=== PATIENT | female | born 1960 | race Two or more races ===

== ENCOUNTER → 2022-12-15 06:00 | Outpatient (CLI) | payer OTHER | END | disposition home or self-care (01) | LOC: ADM 11-23 09:00 → LAB 06:00 → ADM 09:15 → EDSTATUS 12-27 09:15 → CIR.AMB 12-27 09:15 | PROVIDERS: ATTEND Orthopaedic Surgery Hand Surgery | DX: Z01.810 Encounter for preprocedural cardiovascular examination (principal); S52.532P Colles' fracture of left radius, subsequent encounter for closed fracture with malunion; E11.9 Type 2 diabetes mellitus without complications; E78.00 Pure hypercholesterolemia, unspecified; E78.3 Hyperchylomicronemia; D65 Disseminated intravascular coagulation [defibrination syndrome]; D66 Hereditary factor VIII deficiency; N39.0 Urinary tract infection, site not specified; I10 Essential (primary) hypertension; Z20.822 Contact with and (suspected) exposure to COVID-19 ==